=== PATIENT | female | born 1970 | race Hispanic/Latino ===

== ENCOUNTER 2018-01-05 16:13 | Outpatient (CLI) | payer BC ==
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
--- NOTE | 2018-01-05 18:03 | RAD ---
FIVE VIEWS OF THE CERVICAL SPINE: HISTORY: Cervicalgia and right shoulder and neck pain. FINDINGS: AP, lateral, oblique, and open-mouth odontoid views of the cervical spine show normal height and alig nment of the vertebral bodies and intervertebral disks without fracture or subluxation. No degenerat herbie changes are seen. No prevertebral soft tissue swelling is present. IMPRESSION: Unremarkable exam. POS: DILLON
== END 2018-01-05 16:14 | disposition home or self-care (01) ==
LOC: SCSRAD 16:13
PROVIDERS: ATTEND Family Medicine
DX: M25.511 Pain in right shoulder (principal); M54.2 Cervicalgia
CPT/HCPCS: 72052

== ENCOUNTER 2018-08-03 14:20 | Emergency (ER) | payer BC, OTHER ==
[~2018-08-03 14:20] MED LIST: ISOVUE-370 76%-LOCM 1 ML ONE
[2018-08-03] MEDS ORDERED: Morphine 2 MG/ML SYRINGE ONE (15:15)
[2018-08-03] MEDS ORDERED: Ondansetron HCl/PF 4 MG/2 ML Vial ONE (15:15)
[2018-08-03 15:22] LABS: #Eosinphils 0.2 thou/uL (0.0-0.7); #Lymphocytes 1.9 thou/uL (1.20-3.40); #Monocytes 0.3 thou/uL (0.11-0.59); #Neutrophils 2.2 thou/uL (1.40-6.50); %Basophils 0.7 % (0.0-1.0); %Eosinophils 4.2 % (0.0-10.0); %Lymphocytes 40.9 % (21.0-51.0); %Neutrophils 48.2 % (42.0-75.0); Hemoglobin 13.9 g/dL (12.0-16.0); Mean Corpuscular HGB CONC 33.1 g/dL (32.0-36.0); Mean Corpuscular Hemoglobin 27.8 pg (27.0-31.0); Mean Corpuscular Volume 83.9 fL (78.0-98.0); Mean Platelet Volume 7.2 fL (7.4-10.4); Platelet Count 183 thou/uL (130-400); Red Blood Cell (RBC) Count 4.99 mill/uL (4.20-5.40); White Blood Cell (WBC) Count 4.6 thou/uL (4.8-10.8)
[2018-08-03] MEDS ORDERED: Lorazepam 2 MG/ML VIAL ONE (15:23)
[2018-08-03 15:26] LABS: Pregnancy Test - Urine (BHCG) Negative (Negative); Pregu Control Background? CLEAR/WHITE (CLR/WHITE); Pregu Control Bar Appear? YES (CONTROL BAR); Specific Gravity 1.012 (1.002-1.036)
[2018-08-03 15:49] LABS: ALT (SGPT) 45 U/L (8-55); AST (SGOT) 29 U/L (5-34); Alkaline Phosphatase 211 U/L (40-150); Anion Gap 15 mmol/L (10-20); BUN (Urea Nitrogen) 13 mg/dL (7.0-18.7); Bilirubin, Total 0.2 mg/dL (0.2-1.2); Calc. Creatinine Clearance 0 mL/min (70-130); Calcium 10.1 mg/dL (7.8-10.44); Carbon Dioxide 25 mmol/L (22-29); Chloride 103 mmol/L (98-107); Estimated GFR-MDRD 67; Globulin 2.7 g/dL (2.4-3.5); Glucose 213 mg/dL (70-105); Lipase 19 U/L (8-78); Potassium 4.3 mmol/L (3.5-5.1); Protein, Total 7.7 g/dL (6.0-8.3); Sodium 139 mmol/L (136-145)
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
== END 2018-08-03 16:27 | disposition home or self-care (01) ==
LOC: ERS 14:20
DX: R07.89 Other chest pain (principal); E11.9 Type 2 diabetes mellitus without complications; E78.1 Pure hyperglyceridemia; V43.62XA Car passenger injured in collision with other type car in traffic accident, initial encounter
CPT/HCPCS: 70450; 71260; 80053; 81025; 83690; 85025; 93005; 96374; 96375; J2060; J2270; J2405

== ENCOUNTER 2018-08-17 11:48 | Outpatient (CLI) | payer BC ==
--- NOTE | 2018-08-17 14:03 | RAD ---
PA AND LATERAL CHEST: Date: 08/17/18 HISTORY: Costochondral chest pain. COMPARISON: None available. FINDINGS: Surgical clips overlie the right axillary region, as well as seen posteriorly on the right. There is mild right convex curvature of the lower thoracic spine. Cardiac silhouette and pulmonary va sculature are within normal limits. The lungs are clear. No other findings. IMPRESSION: No acute cardiopulmonary process. POS: JEANE
== END 2018-08-17 11:49 | disposition home or self-care (01) ==
LOC: BICRAD 11:48
PROVIDERS: ATTEND Family Medicine
DX: R07.1 Chest pain on breathing (principal); E11.9 Type 2 diabetes mellitus without complications
CPT/HCPCS: 36415; 71046; 80048; 82043; 83036

== ENCOUNTER 2018-09-21 21:41 | Emergency (ER) | payer BC | END 2018-09-21 22:45 | disposition home or self-care (01) | LOC: ERS 21:41 | DX: J30.9 Allergic rhinitis, unspecified (principal); J02.9 Acute pharyngitis, unspecified | CPT/HCPCS: 87081; 87430; 99283 ==